=== PATIENT | female | born 1975 | race Asian ===

== ENCOUNTER 2023-12-06 08:58 | Inpatient (IN) ==
[~2023-12-06 08:58] MED LIST: Ertapenem 1 GM in NS 0.9% 50 ML BAG IVPB SCH
[2023-12-06 09:51] LABS: Rapid COVID-19 Molecular Undetected (Undetected)
[2023-12-06] MEDS ORDERED: Dexamethasone IV 4 MG/ML VIAL 1 ml VIAL ONE (10:04)
[2023-12-06] MEDS ORDERED: Ondansetron 4 mg VIAL 2 MG/ML 2 ml VIAL ONE (10:04)
[2023-12-06] MEDS ORDERED: Propofol 10 MG/ML 20 ML BTL ONE (10:04)
[2023-12-06] MEDS ORDERED: Lidocaine 2% PF 5 ML VIAL ONE (10:04)
[2023-12-06] MEDS ORDERED: Midazolam 2 mg/2 ml VIAL 1 mg/ml 2 ml VIAL (2 mg) ONE (10:05)
[2023-12-06] MEDS ORDERED: fentaNYL 100 mcg/2 ml 50 MCG/ML VIAL ONE ×2 (10:05→15:03)
[2023-12-06] MEDS ORDERED: Rocuronium 50 mg VIAL 10 mg/ml 5 ml VIAL (50 mg) ONE ×3 (10:05→13:18)
[2023-12-06] MEDS ORDERED: Ondansetron 4 mg VIAL 2 MG/ML 2 ml VIAL IV PRN ×2 (10:16→14:22)
[2023-12-06] MEDS ORDERED: Naloxone 0.4 mg VIAL 0.4 mg/ml 1 ml VIAL IV PRN ×2 (10:16)
[2023-12-06] MEDS ORDERED: Metoclopramide 5 MG/ML VIAL (10 mg) IV PRN (10:16)
[2023-12-06] MEDS: Buffered Lidocaine 1% SYRIN 1 ml INTRADERM ONE (10:24)
[2023-12-06] MEDS: Lactated Ringers 1000 ml BAG 1,000 ML IV SCH (10:24)
[2023-12-06] MEDS: Scopolamine 1 mg/72hr PATCH TRANSDERM ONE (10:25)
[2023-12-06] MEDS ORDERED: Lidocaine 4 MG/ML IV PREMIX 2,000 MG/500 ML BAG IV ONE (10:51)
[2023-12-06] MEDS ORDERED: Lidocaine 1% VIAL 10 MG/ML 30 ML VIAL ONE (10:57)
[2023-12-06] MEDS ORDERED: Bupivacaine 0.25% EPI 200,000 30 ML SDV ONE (10:57)
[2023-12-06] MEDS ORDERED: KETAMINE HCL 10 MG/ML 20 ml VIAL (200 MG) ONE (11:36)
[2023-12-06] MEDS ORDERED: Phenylephrine 40 mcg/mL 10mL (400mcg) SYRINGE ONE (11:46)
[2023-12-06] MEDS ORDERED: HYDROmorphone 0.5 MG/0.5 ML SYRINGE IV SLOW PU PRN (14:30)
[2023-12-06] MEDS: fentaNYL 100 mcg/2 ml 50 MCG/ML VIAL IV PRN (15:04)
[2023-12-07 06:20] LABS: ABS Lymphocytes 1.7 10^3/uL (1.0-4.8); ABS Monocytes 0.8 10^3/uL (0.0-0.9); ABS Neutrophils 6.1 10^3/uL (1.5-7.6); Eosinophil % 0.2 %; Hematocrit 36.8 % (35-45); Hemoglobin 12.4 g/dL (11.5-14.3); Lymphocyte % 19.7 %; Mean Corpuscular Hemoglobin 29.9 pg (27-33); Mean Corpuscular Hgb Conc 33.8 g/dL (31-36); Mean Corpuscular Volume 88.6 fL (80-97); Mean Platelet Volume 7.8 fL (7.5-11.2); Platelet Count 194 10^3/uL (150-450); Red Blood Count 4.16 10^6/uL (3.63-4.92); Red Cell Distribution Width 13.6 % (12-17); White Blood Count 8.6 10^3/uL (3.8-11.8)
[2023-12-07 06:57] LABS: Calcium 8.3 mg/dL (8.6-10.3); Creatinine, Serum 0.78 mg/dL (0.51-0.95); Potassium 3.9 mmol/L (3.5-5.0); eGFR CKD-EPI 93.1 (>60)
[2023-12-07] MEDS: Enoxaparin 40 MG/0.4 ML SYR SUBCUT SCH (09:29)
[2023-12-09 10:53] VITALS: BP 115/70
== END 2023-12-09 13:10 | disposition home or self-care (01) | DRG 331 ==
LOC: AA 08:58 → SSU 16:54
PROVIDERS: ADMIT Surgery; ATTEND Surgery